=== PATIENT | female | born 1990 | race African-American/Black ===

== ENCOUNTER → 2017-01-07 21:55 | Emergency (ER) | payer OTHER ==
--- NOTE | ~2017-01-07 | EKG ---
PATIENT: LAUREN CURIEL UNIT #: [id number] Ventricular Rate: 130 BPM Atrial Rate: 130 BPM P-R Interval: 126 ms QRS Duration: 76 ms Q-T Interval: 290 ms QTC Calculation(Bezet): 426 ms P [place]: 74 degrees Calculated R [place]: 92 degrees Calculated T [place]: 1 degrees Diagnosis Line: Sinus tachycardia Diagnosis Line: Rightward axis Diagnosis Line: T wave abnormality, consider inferior ischemia Diagnosis Line: Abnormal ECG Diagnosis Line: No previous ECGs available Diagnosis Line: Confirmed by AUSTEN JACK MD ([id number]) on 01/10/2017 Diagnosis Line: 9:42:41 AM INTERPRETING MD: GUERO ISRAEL
[~2017-01-07 21:55] MED LIST: ATARAX PO; COUMADIN PO; ELIMITE60 GM TOP; FLEXERIL PO; FLEXERIL10 MG PO; IBUPROFEN800 MG PO; MACROBID 100 M100 MG PO; PENICILLIN PO; PREDNISONE PO; PRENATAL VITAMI1 TA3 PO; PRENATAL1 TA1 PO; ZOFRAN PO
== END | disposition left against medical advice (07) ==
LOC: CED 21:55
DX: Z53.21 Procedure and treatment not carried out due to patient leaving prior to being seen by health care provider (principal)
CPT/HCPCS: 93005